=== PATIENT | male | born 1995 | race Asian ===

== ENCOUNTER 2016-05-25 23:32 | Emergency (ER) | payer MEDICAID ==
[~2016-05-25] VITALS: Ht 172.7 cm; Wt 81.5 kg
[2016-05-25 23:34] VITALS: BP 124/89
[2016-05-26] MEDS ORDERED: HydrOXYzine HCL 25 MG TABLET PO ONE (01:15)
== END 2016-05-26 01:22 | disposition home or self-care (01) ==
LOC: EMS 23:34
DX: F41.9 Anxiety disorder, unspecified (principal)
CPT/HCPCS: 99283

== ENCOUNTER 2016-12-28 17:56 | Emergency (ER) | payer MEDICAID, OTHER ==
[~2016-12-28] VITALS: Ht 172.7 cm; Wt 72.7 kg
[2016-12-28 20:23] VITALS: BP 128/81
== END 2016-12-28 20:25 | disposition home or self-care (01) ==
LOC: EMS 18:03
DX: J32.9 Chronic sinusitis, unspecified (principal)
CPT/HCPCS: 99283

== ENCOUNTER 2017-11-11 12:48 | Emergency (ER) | payer OTHER ==
[~2017-11-11] VITALS: Ht 172.7 cm; Wt 75.0 kg
[2017-11-11 14:37] VITALS: BP 126/70
== END 2017-11-11 14:40 | disposition home or self-care (01) ==
LOC: EMS 12:48
DX: F41.9 Anxiety disorder, unspecified (principal); R06.02 Shortness of breath
CPT/HCPCS: 99283